=== PATIENT | female | born 1950 | race Caucasian/White ===

== ENCOUNTER 2020-08-29 13:36 | Emergency (ER) | payer MEDICARE ==
[~2020-08-29] VITALS: Ht 154.9 cm; Wt 68.0 kg
[2020-08-29 14:34] LABS: BASOPHILS ABSOLUTE AUTO 0.07 K/mm3 (0.00-0.23); BASOPHILS PERCENT AUTO 0 % (0-2); EOSINOPHILS ABSOLUTE AUTO 0.06 K/mm3 (0.00-0.68); EOSINOPHILS PERCENT AUTO 0 % (0-6); Hematocrit 48.9 % (33.0-51.0); Hemoglobin 16.2 g/dL (11.5-16.0); IMMATURE GRAN ABSOLUTE AUTO 0.07 K/mm3 (0.00-0.10); IMMATURE GRAN PERCENT AUTO 0 % (0-1); LYMPHOCYTES ABSOLUTE AUTO 2.01 K/mm3 (0.84-5.20); LYMPHOCYTES PERCENT AUTO 11 % (21-46); MONOCYTES ABSOLUTE AUTO 0.57 K/mm3 (0.16-1.47); MONOCYTES PERCENT AUTO 3 % (4-13); Mean Corpuscular HGB 31.3 pg (26.0-34.0); Mean Corpuscular HGB Conc 33.1 g/dL (31.5-36.5); Mean Corpuscular Volume 94 fL (80-100); NEUTROPHILS ABSOLUTE AUTO 15.37 K/mm3 (1.96-9.15); NEUTROPHILS PERCENT AUTO 85 % (41-73); Platelet Count 364 K/mm3 (150-400); RDW Coefficient Variation 13.5 % (11.7-14.2); RDW Standard Deviation 47.6 fL (35.1-46.3); Red Blood Cell Count 5.18 M/mm3 (3.80-5.20); White Blood Cell Count 18.15 K/mm3 (4.00-11.30)
[2020-08-29 14:39] LABS: Alanine Aminotransfer (ALT/SGP 19 U/L (12-78); Albumin, Blood 4.3 g/dL (3.4-5.0); Albumin/Globulin Ratio 1.1 (0.8-1.8); Alk Phos 76 U/L (50-136); Anion Gap 8 mmol/L (6-16); Aspartate Aminotrans (AST/SGOT 21 U/L (12-37); Bilirubin, Total 0.6 mg/dL (0.1-1.0); Blood Urea Nitrogen 21 mg/dL (8-24); Bun/Creatinine Ratio 23.7 (12.0-20.0); CO2, Blood 24 mmol/L (21-32); Calcium, Blood 9.8 mg/dL (8.5-10.1); Chloride, Blood 104 mmol/L (98-108); Creatinine, Blood 0.89 mg/dL (0.40-1.00); Glomerular Filtration Rate >60 (60-); Glucose, Blood 156 mg/dL (70-99); Potassium, Blood 3.5 mmol/L (3.5-5.5); Sodium, Blood 136 mmol/L (136-145); Total Protein, Blood 8.3 g/dL (6.4-8.2)
[2020-08-29 15:38] LABS: Source, Urine Clean Catch
[2020-08-29 15:53] LABS: Appearance, Urine Clear (Clear); Bilirubin, Urine Neg (Neg); Blood, Urine 2+ (Neg); Glucose Qualitative, Urine Neg (Neg); Ketones, Urine 3+ (Neg); Leukocyte Esterase, Urine 2+ (Neg); Nitrite, Urine Pos (Neg); Protein, Urine 1+ (Neg); Urobilinogen, Urine 2+ (Normal)
[2020-08-29 16:06] LABS: Color, Urine Amber (P-Yellow)
[2020-08-29 16:07] LABS: Mucus Light (0-Heavy)
[2020-08-29] MEDS ORDERED: Sinemet 25-1001 EACH PO (16:11)
[2020-08-29] MEDS ORDERED: PRAM.125 PO (16:11)
[2020-08-29 16:12] LABS: Amorphous Mod (0-Heavy); Squamous Epithelial Cells Few /hpf (Few)
[2020-08-29] MEDS ORDERED: LEVSOD75 PO (16:12)
[2020-08-29 16:13] LABS: Bacteria Few /hpf
[2020-08-29] MEDS ORDERED: BUPR100 PO (16:14)
[2020-08-29] MEDS ORDERED: OXYCODONE HCL E PO (16:14)
[2020-08-29] MEDS ORDERED: CITA20 PO (16:15)
[2020-08-29] MEDS ORDERED: SULTRIDS PO (17:11)
[2020-08-29] MEDS ORDERED: AUGMENTIN XR 11 EACH PO (17:11)
== END 2020-08-29 18:30 | disposition home or self-care (01) ==
LOC: ER 13:36
PROVIDERS: Physician Assistant
DX: K52.9 Noninfective gastroenteritis and colitis, unspecified (principal); N12 Tubulo-interstitial nephritis, not specified as acute or chronic; Z88.8 Allergy status to other drugs, medicaments and biological substances
CPT/HCPCS: 36415; 74177; 80053; 81001; 83690; 85025; 87086; 93005; 93010; 96374; 99284-25; A9270; J2270; J2550; J7030; Q9967